=== PATIENT | male | born 1950 | race Two or more races ===

== ENCOUNTER 2017-12-08 14:33 | Outpatient (CLI) | payer OTHER ==
[~2017-12-08] VITALS: Ht 170.2 cm; Wt 83.9 kg
[~2017-12-08 14:33] MED LIST: ATIVAN1 MG PO; AVAPRO75 MG PO; CATAFLAM50 MG PO; DICLOFENAC POTA50 MG PO
== END 2017-12-08 14:50 | disposition home or self-care (01) ==
LOC: OFIC 805 14:33
DX: J32.8 Other chronic sinusitis (principal); J34.89 Other specified disorders of nose and nasal sinuses

== ENCOUNTER 2017-12-31 14:13 | Outpatient (CLI) | payer OTHER ==
[~2017-12-31] VITALS: Ht 152.4 cm; Wt 83.9 kg
== END 2017-12-31 14:30 | disposition home or self-care (01) ==
LOC: OFIC 805 14:13
DX: J32.8 Other chronic sinusitis (principal)

== ENCOUNTER 2018-01-02 10:15 | Outpatient (CLI) | payer OTHER | END 2018-01-02 10:26 | disposition home or self-care (01) | LOC: SONOGRAMA 10:15 → MAMO-SONO 10:45 | DX: E04.1 Nontoxic single thyroid nodule (principal); E03.8 Other specified hypothyroidism ==

== ENCOUNTER 2018-04-06 09:23 | Outpatient (CLI) | payer OTHER | END 2018-04-06 09:30 | disposition home or self-care (01) | LOC: NUCLEAR 09:23 | DX: E03.8 Other specified hypothyroidism (principal) | CPT/HCPCS: 78012; A9512 ==

== ENCOUNTER 2019-08-01 08:25 | Outpatient (CLI) | payer OTHER | END 2019-08-01 08:53 | disposition home or self-care (01) | LOC: RX STUDY 08:25 | DX: R13.19 Other dysphagia (principal) ==

== ENCOUNTER 2024-02-01 10:42 | Outpatient (CLI) | payer OTHER | END 2024-02-01 10:43 | disposition home or self-care (01) | LOC: EKG 10:42 | PROVIDERS: ATTEND Ophthalmology | DX: I10 Essential (primary) hypertension (principal) ==

== ENCOUNTER 2024-02-01 11:20 | Outpatient (CLI) | payer OTHER | END 2024-02-01 11:23 | disposition home or self-care (01) | LOC: RAD 11:20 | PROVIDERS: ATTEND Ophthalmology | DX: Z01.811 Encounter for preprocedural respiratory examination (principal) ==

== ENCOUNTER 2024-08-12 07:52 | Outpatient (CLI) | payer OTHER | END 2024-08-12 07:53 | disposition home or self-care (01) | LOC: TOM 07:52 | PROVIDERS: ATTEND Urology | DX: C61 Malignant neoplasm of prostate (principal) | CPT/HCPCS: 74177; Q9965 ==

== ENCOUNTER 2024-09-01 07:38 | Outpatient (CLI) | payer OTHER | END 2024-09-01 07:39 | disposition home or self-care (01) | LOC: NUCLEAR 07:38 | PROVIDERS: ATTEND Urology | DX: C61 Malignant neoplasm of prostate (principal) | CPT/HCPCS: 78306; A9503 ==